=== PATIENT | male | born 1965 | race Caucasian/White ===

== ENCOUNTER 2019-09-28 01:46 | Inpatient (IN) | payer MEDICAID ==
[2019-09-28] VITALS (19 sets, daily range): BP systolic 128–157; BP diastolic 75–100
[~2019-09-28] VITALS: Ht 188 cm; Wt 104.0 kg
[~2019-09-28 01:46] MED LIST: CLIN-90 PO; DIPH25CA83 PO; HYDR20OI TP
[2019-09-28] MEDS ORDERED: naloxone 0.4 mg/ml inj IV ONE (01:55)
[2019-09-28] MEDS ORDERED: naloxone 2mg/2ml inj IV ONE (02:00)
[2019-09-28] MEDS ORDERED: normal saline 1000ML IV soln IVB ONE ×2 (02:00→02:30)
[2019-09-28] MEDS ORDERED: succinylcholine 20mg/ml inj IV ONE (02:30)
[2019-09-28] MEDS ORDERED: etomidate 2mg/ml inj. IV ONE (02:30)
[2019-09-28] MEDS ORDERED: midazolam 100mg in NS 100ml 100 ML IV ONE (02:30)
[2019-09-28 02:37] LABS: CLARITY,URINE CLEAR (Clear); COLOR,URINE YELLOW (Yellow); GLUCOSE, URINE NEGATIVE (Neg); KETONES,URINE NEGATIVE (Neg); LEUKOCYTE ESTERASE ,URINE NEGATIVE (Neg); NITRITES, URINE NEGATIVE (Neg); OCCULT BLOOD,URINE NEGATIVE (Neg); PH,URINE 5.5 (4.8-8.0); PROTEIN,URINE NEGATIVE (Neg)
[2019-09-28 02:38] LABS: UA COLLECTION TYPE FOLEY CATH
[2019-09-28 02:39] LABS: BASOPHILS % (AUTO) 0.7 % (0-1); EOSINOPHILS # (AUTO) 0.1 X10'3 (0-0.9); EOSINOPHILS % (AUTO) 2.7 % (0-6); HEMATOCRIT 41.7 % (42.0-52.0); HEMOGLOBIN 14.1 g/dl (14.0-17.9); LYMPHOCYTES # (AUTO) 1.6 X10'3 (1.1-4.8); LYMPHOCYTES % (AUTO) 37.8 % (21-51); MEAN CORPUSCULAR HEMOGLOBIN 30.6 PG (27.0-31.0); MEAN CORPUSCULAR HGB CONC 33.9 g/dL (33.0-36.5); MEAN CORPUSCULAR VOLUME 90.3 FL (78-98); MEAN PLATELET VOLUME 9.2 FL (7.4-10.4); MONOCYTES # (AUTO) 0.4 X10'3 (0-0.9); MONOCYTES % (AUTO) 8.3 % (2-12); NEUTROPHILS # (AUTO) 2.1 X10'3 (1.8-7.7); NEUTROPHILS % (AUTO) 50.5 % (42-75); PLATELET COUNT 181 X10'3 (140-440); RED BLOOD COUNT 4.62 X10'6 (4.70-6.10); RED CELL DISTRIBUTION WIDTH 13.6 % (11.5-14.5); WHITE BLOOD COUNT 4.2 X10'3 (4.5-11.0)
[2019-09-28 02:52] LABS: ALANINE AMINOTRANSFERASE 64 U/L (12-78); ALBUMIN 3.6 G/DL (3.4-5.0); ALBUMIN/GLOBULIN RATIO 0.9 (1.1-1.5); ALKALINE PHOSPHATASE 89 IU/L (46-116); ANION GAP 6 (8-16); ASPARTATE AMINO TRANSFERASE 51 U/L (10-37); BILIRUBIN,TOTAL 0.8 MG/DL (0.1-1.0); BLOOD UREA NITROGEN 13 MG/DL (7-18); BUN/CREATININE RATIO 13.7 (5.4-32.0); CHLORIDE 108 MMOL/L (99-107); CREATININE 0.95 MG/DL (0.60-1.10); GLUCOSE 103 MG/DL (70-104); POTASSIUM 3.6 MMOL/L (3.5-5.1); SODIUM 141 MMOL/L (135-145); TOTAL CARBON DIOXIDE 26.7 MMOL/L (24-32); TOTAL PROTEIN 7.5 G/DL (6.4-8.2); eGFR 84 ML/MIN
--- NOTE | 2019-09-28 02:54 | NUR ---
Versed bolus of 10mg verbal order by Dr. Freeman due to patient waking with eyes wide open, chewing on his tongue and ET tube and trying to climb off the gurney.
[2019-09-28 02:55] LABS: ACETAMINOPHEN < 2.0 UG/ML (10-30); ETHANOL < 0.010 GM/DL (0.0-0.010)
[2019-09-28 02:57] LABS: PARTIAL THROMBOPLASTIN TIME 27 SECONDS (22-32)
--- NOTE | 2019-09-28 03:08 | NUR ---
PT UPGRADED TO CECELIA LEVEL 2 AFTER DECREASE IN MENTATION AND GCS REQUIRING INTUBATION.
[2019-09-28 03:26] LABS: ABG BASE EXCESS -1.2 mmol/L (-2.0-3.0); ABG HCO3 25.7 mmol/L (22.0-26.0); ABG OXYGEN SATURATION 98.6 % (95-98); ABG PCO2 (T) 51.7 mmHg (35.0-45.0); ABG PH (T) 7.314 (7.350-7.450); ABG PO2 (T) 153.1 mmHg (83-108); ALLEN'S TEST POSITIVE; FCOHb 0.3 % (0.5-1.5); FMetHb 0.3 % (0.3-1.12); PEEP 5 cm H2O; RESPIRATORY RATE 16 b/min; TIDAL VOLUME 450 mL; TOTAL HEMOGLOBIN 13.5 G/dl (14.0-17.9)
[2019-09-28] MEDS ORDERED: magnesium hydroxide 30ml (MOM) UD suspension PO PRN (03:55)
[2019-09-28] MEDS ORDERED: midazolam 100mg in NS 100ml 100 ML IV PRN (03:55)
[2019-09-28] MEDS ORDERED: potassium Cl 20 mEq SR tablet PO PRN ×2 (03:55)
[2019-09-28] MEDS ORDERED: acetaminophen 325mg tablet PO PRN ×2 (03:55)
[2019-09-28] MEDS: K, MAG and/or Phos replacement - Verify level? MC SCH ×2 (03:55→08:00)
[2019-09-28] MEDS ORDERED: potassium CL 10mEq/100ml bag 100 ML IV PRN ×2 (03:55)
[2019-09-28] MEDS ORDERED: ondansetron/PF 4mg/2ml inj IV PRN (03:55)
[2019-09-28 04:01] LABS: URINE AMPHETAMINE SCREEN POSITIVE (Neg); URINE BARBITUATE SCREEN NEGATIVE (Neg); URINE BENZODIAZEPINES SCREEN NEGATIVE (Neg); URINE CANNABINOID SCREEN NEGATIVE (Neg); URINE COCAINE SCREEN NEGATIVE (Neg); URINE METHADONE SCREEN NEGATIVE (Neg); URINE OPIATE SCREEN NEGATIVE (Neg); URINE PHENCYCLIDINE SCREEN NEGATIVE (Neg)
[2019-09-28] MEDS: normal saline 1000ml 1,000 ML IV SCH ×2 (04:34→07:13)
[2019-09-28] MEDS ORDERED: etomidate 2mg/ml inj. ONE (08:00)
[2019-09-28] MEDS ORDERED: naloxone 2mg/2ml inj ONE (08:00)
[2019-09-28] MEDS ORDERED: magnesium sulf 1 GM/2 ML ONE (08:00)
[2019-09-28] MEDS: ipratropium/albuterol 3ml nebule NEB SCH ×6 (08:22→23:26)
[2019-09-28] MEDS: pantoprazole 40 MG vial IV SCH (08:36)
--- NOTE | 2019-09-28 08:40 | NUR ---
Blaze kendall, new orders to cut versed rate in half, which would make new rate 4mg/hr. No other orders at this time.
--- NOTE | 2019-09-28 13:20 | NUR ---
Pt with low [place] of 11. Per physical assessment pt with no edema or wounds. No nutrition intervention warranted at this time. Pt intubated shortly after arrival in the ER due to poor airway control per H&P, however just recently extubated, pending PO diet advancement. Will continue to follow. Addendum: 09/28/19 at [address] Amended: Links added.
[2019-09-28 16:21] LABS: ABG BASE EXCESS -3.7 mmol/L (-2.0-3.0); ABG HCO3 19.4 mmol/L (22.0-26.0); ABG OXYGEN SATURATION 98.2 % (95-98); ABG PCO2 (T) 30.1 mmHg (35.0-45.0); ABG PH (T) 7.428 (7.350-7.450); ABG PO2 (T) 117.3 mmHg (83-108); ALLEN'S TEST POSITIVE; FCOHb 0.3 % (0.5-1.5); FMetHb 0.2 % (0.3-1.12); FO2Hb 97.7 % (94-100); TOTAL HEMOGLOBIN 13.5 G/dl (14.0-17.9)
[2019-09-28] MEDS ORDERED: hydrALAZINE 20mg/ml inj. IV ONE (17:35)
[2019-09-28] MEDS: hydrALAZINE 20mg/ml inj. IV SCH (20:00)
[2019-09-29] VITALS (18 sets, daily range): BP systolic 130–169; BP diastolic 73–108
[2019-09-29] MEDS: hydrALAZINE 20mg/ml inj. IV SCH ×2 (02:00→08:01)
[2019-09-29] MEDS: ipratropium/albuterol 3ml nebule NEB SCH ×7 (03:16→19:04)
[2019-09-29 05:32] LABS: BASOPHILS % (AUTO) 0.4 % (0-1); EOSINOPHILS # (AUTO) 0.1 X10'3 (0-0.9); EOSINOPHILS % (AUTO) 1.8 % (0-6); HEMATOCRIT 40.9 % (42.0-52.0); HEMOGLOBIN 13.8 g/dl (14.0-17.9); LYMPHOCYTES # (AUTO) 1.4 X10'3 (1.1-4.8); LYMPHOCYTES % (AUTO) 32.2 % (21-51); MEAN CORPUSCULAR HEMOGLOBIN 30.7 PG (27.0-31.0); MEAN CORPUSCULAR HGB CONC 33.9 g/dL (33.0-36.5); MEAN CORPUSCULAR VOLUME 90.5 FL (78-98); MEAN PLATELET VOLUME 9.6 FL (7.4-10.4); MONOCYTES # (AUTO) 0.3 X10'3 (0-0.9); MONOCYTES % (AUTO) 7.6 % (2-12); NEUTROPHILS # (AUTO) 2.6 X10'3 (1.8-7.7); PLATELET COUNT 161 X10'3 (140-440); RED BLOOD COUNT 4.51 X10'6 (4.70-6.10); RED CELL DISTRIBUTION WIDTH 13.5 % (11.5-14.5); WHITE BLOOD COUNT 4.4 X10'3 (4.5-11.0)
[2019-09-29 05:51] LABS: ALANINE AMINOTRANSFERASE 57 U/L (12-78); ALBUMIN 3.1 G/DL (3.4-5.0); ALBUMIN/GLOBULIN RATIO 0.8 (1.1-1.5); ALKALINE PHOSPHATASE 87 IU/L (46-116); ANION GAP 6 (8-16); ASPARTATE AMINO TRANSFERASE 49 U/L (10-37); BILIRUBIN,TOTAL 2.1 MG/DL (0.1-1.0); BLOOD UREA NITROGEN 8 MG/DL (7-18); BUN/CREATININE RATIO 9.5 (5.4-32.0); CALCIUM 8.7 MG/DL (8.5-10.1); CHLORIDE 107 MMOL/L (99-107); CREATININE 0.84 MG/DL (0.60-1.10); GLUCOSE 90 MG/DL (70-104); MAGNESIUM 1.8 MG/DL (1.5-2.4); PHOSPHORUS 2.9 MG/DL (2.3-4.5); POTASSIUM 3.5 MMOL/L (3.5-5.1); SODIUM 141 MMOL/L (135-145); TOTAL CARBON DIOXIDE 28.2 MMOL/L (24-32); TOTAL PROTEIN 6.9 G/DL (6.4-8.2); eGFR > 90 ML/MIN
--- NOTE | 2019-09-29 06:30 | NUR ---
Patient in room ICU 2039. I have received report from Gabriella COTTO and had the opportunity to ask questions and assume patient care. pt room is clear of any hazards. VSS and NS running @ 75mL/hr.
[2019-09-29] MEDS: normal saline 1000ml 1,000 ML IV SCH (06:35)
[2019-09-29] MEDS ORDERED: mineral oil/petrolatum ophthal oint EACHEYE SCH (08:00)
[2019-09-29] MEDS: K, MAG and/or Phos replacement - Verify level? MC SCH (08:00)
[2019-09-29] MEDS: pantoprazole 40 MG vial IV SCH (08:01)
[2019-09-29] MEDS ORDERED: HYDR-4383 PO (11:03)
--- NOTE | 2019-09-29 14:59 | NUR ---
attempted to call report to receiving RN; RN unavailable.
--- NOTE | 2019-09-29 15:15 | NUR ---
pt report called to Joy COTTO; all questions answered.
--- NOTE | 2019-09-29 15:39 | NUR ---
pt wheeled to 360A with all belongings and transferred 2 person assist to bed from wheel chair.
--- NOTE | 2019-09-29 15:42 | NUR ---
I was unable to scan my 0700 treatment because the previous therapist had scanned the 7 scheduled treatment, i did give the 7 treatment at 7:53 Addendum: 09/29/19 at 1543 by Anita Cespedes RT Amended: Links added.
[2019-09-29] MEDS ORDERED: hyDRALAzine 10mg tablet PO SCH (16:00)
--- NOTE | 2019-09-29 16:30 | NUR ---
Patient arrived to room 360 A via wheelchair with x1 staff. Received report from YADIEL Jain. Patient alert and in no apparent distress at time of arrival. Patient has a flat affect and answers in very short responses. Patient denies pain at this time. Patient asking for a sandwich and water. Blood pressure elevated at 169/108 and HR of 79. Lorena Pulido notified and an order for Hydralazine was put in.
--- NOTE | 2019-09-29 18:27 | NUR ---
Problems reprioritized. Patient report given, questions answered & plan of care reviewed with YADIEL Simental.
--- NOTE | 2019-09-29 18:30 | NUR ---
Patient in room [facility] 360. I have received report from YADIEL Canseco and had the opportunity to ask questions and assume patient care. Patient is sitting up in bed A&Ox3, PIKE but seems sedate. He reports he has a migraine and would like Imitrex, that med is not ordered and I advised I would consult with .
--- NOTE | 2019-09-29 20:27 | NUR ---
I walked into patient's room to pass night meds and he was getting dressed, told me "I am leaving". He had a friend at the bedside, who said he was the patient's ride. I explained the cons of leaving AMA and it would be in his best interest to say for medical clearance, patient again said he would not wait for MD to come speak with him. PITO Oleary was notified of AMA request and that the patient would not wait for him to come evaluate and talk to him. Patient signed AMA paper work and requested belongings he says were locked up. I left the room to call ER Admit for belongings and when I came back to the room the patient was gone.
[2019-09-30] MEDS ORDERED: pantoprazole 40mg Tablet.DR PO SCH (07:30)
== END 2019-09-29 20:00 | disposition left against medical advice (07) | DRG 812 ==
LOC: ER 01:47 → ED HOLD 04:08 → ICU 2S 05:04 → SUR 3N 09-29 15:23
PROVIDERS: ADMIT Internal Medicine Critical Care Medicine; ATTEND Internal Medicine Critical Care Medicine
PROC: 5A1935Z Respiratory Ventilation, Less than 24 Consecutive Hours (ICD-10-PCS; principal; 2019-09-28)
PROC: 0BH17EZ Insertion of Endotracheal Airway into Trachea, Via Natural or Artificial Opening (ICD-10-PCS; 2019-09-28)
DX: T50.902A Poisoning by unspecified drugs, medicaments and biological substances, intentional self-harm, initial encounter (principal); J96.00 Acute respiratory failure, unspecified whether with hypoxia or hypercapnia; F32.9 Major depressive disorder, single episode, unspecified; F15.90 Other stimulant use, unspecified, uncomplicated; Z85.47 Personal history of malignant neoplasm of testis; Z90.49 Acquired absence of other specified parts of digestive tract; Z53.29 Procedure and treatment not carried out because of patient's decision for other reasons; Z88.5 Allergy status to narcotic agent; I95.9 Hypotension, unspecified; Y92.89 Other specified places as the place of occurrence of the external cause
CPT/HCPCS: 31500; 36415; 36600; 70450; 71045; 80053; 80305; 80320; 80329; 81003; 82803; 82948; 83735; 84100; 85018; 85025; 85610; 85730; 87070; 87081; 93005; 94640; 94760; 96374; 97110; 97116; 97161; 99291; C9113; G0378; J0330; J0360; J2310; J3475; J7030

== ENCOUNTER 2020-10-12 23:21 | Emergency (ER) | payer MEDICAID ==
[~2020-10-12] VITALS: Ht 172.7 cm; Wt 85.0 kg
[~2020-10-12 23:21] MED LIST changes: -CLIN-90 PO; +CLIN-97 PO; +HYDR-4383 PO
[2020-10-12 23:23] VITALS: BP 188/111
== END 2020-10-13 00:01 ==
LOC: ER 23:21
DX: S01.81XA Laceration without foreign body of other part of head, initial encounter (principal); F15.10 Other stimulant abuse, uncomplicated; F32.9 Major depressive disorder, single episode, unspecified; Z56.0 Unemployment, unspecified; Z90.49 Acquired absence of other specified parts of digestive tract; Z85.47 Personal history of malignant neoplasm of testis; X08.8XXA Exposure to other specified smoke, fire and flames, initial encounter; Y93.89 Activity, other specified; Y92.89 Other specified places as the place of occurrence of the external cause; Y99.8 Other external cause status
CPT/HCPCS: 99283

== ENCOUNTER 2021-03-03 15:28 | Emergency (ER) | payer MEDICAID ==
[~2021-03-03] VITALS: Ht 172.7 cm; Wt 90.9 kg
[2021-03-03 15:41] VITALS: BP 140/65
--- NOTE | 2021-03-03 16:25 | NUR ---
PATIENT IN FTA WITH U/S WITH MALE TECH STAND BY
[2021-03-03 16:51] LABS: BASOPHILS % (AUTO) 0.3 % (0-1); EOSINOPHILS % (AUTO) 0.2 % (0-6); HEMATOCRIT 41.4 % (42.0-52.0); HEMOGLOBIN 13.7 g/dl (14.0-17.9); LYMPHOCYTES # (AUTO) 1.3 X10'3 (1.1-4.8); LYMPHOCYTES % (AUTO) 14.5 % (21-51); MEAN CORPUSCULAR HEMOGLOBIN 31.3 PG (27.0-31.0); MEAN CORPUSCULAR HGB CONC 33.1 g/dL (33.0-36.5); MEAN CORPUSCULAR VOLUME 94.6 FL (78-98); MEAN PLATELET VOLUME 9.8 FL (7.4-10.4); MONOCYTES # (AUTO) 0.7 X10'3 (0-0.9); MONOCYTES % (AUTO) 7.6 % (2-12); NEUTROPHILS % (AUTO) 77.4 % (42-75); PLATELET COUNT 188 X10'3 (140-440); RED BLOOD COUNT 4.38 X10'6 (4.70-6.10); RED CELL DISTRIBUTION WIDTH 13.8 % (11.5-14.5); WHITE BLOOD COUNT 9.1 X10'3 (4.5-11.0)
[2021-03-03] MEDS ORDERED: DOXY150T8 PO (16:58)
[2021-03-03 17:13] LABS: ALANINE AMINOTRANSFERASE 72 U/L (12-78); ALBUMIN 3.6 G/DL (3.4-5.0); ALBUMIN/GLOBULIN RATIO 0.9 (1.1-1.5); ALKALINE PHOSPHATASE 79 IU/L (46-116); ANION GAP 10 (8-16); ASPARTATE AMINO TRANSFERASE 55 U/L (10-37); BILIRUBIN,TOTAL 2.4 MG/DL (0.1-1.0); BLOOD UREA NITROGEN 11 MG/DL (7-18); BUN/CREATININE RATIO 10.6 (5.4-32.0); CALCIUM 8.6 MG/DL (8.5-10.1); CHLORIDE 104 MMOL/L (99-107); CREATININE 1.04 MG/DL (0.60-1.10); GLUCOSE 103 MG/DL (70-104); POTASSIUM 3.8 MMOL/L (3.5-5.1); SODIUM 137 MMOL/L (135-145); TOTAL CARBON DIOXIDE 23.5 MMOL/L (24-32); TOTAL PROTEIN 7.8 G/DL (6.4-8.2); eGFR 75 ML/MIN
== END 2021-03-03 17:19 | disposition home or self-care (01) ==
LOC: ER 15:29
DX: N45.1 Epididymitis (principal); N50.811 Right testicular pain; K46.9 Unspecified abdominal hernia without obstruction or gangrene; F32.9 Major depressive disorder, single episode, unspecified; F15.90 Other stimulant use, unspecified, uncomplicated; Z85.47 Personal history of malignant neoplasm of testis; Z90.49 Acquired absence of other specified parts of digestive tract; Z56.0 Unemployment, unspecified; Z88.5 Allergy status to narcotic agent; Z79.2 Long term (current) use of antibiotics; Z79.899 Other long term (current) drug therapy
CPT/HCPCS: 36415; 76870; 80053; 85025; 93976; 99284

== ENCOUNTER 2021-03-06 21:14 | Emergency (ER) | payer MEDICAID ==
[~2021-03-06] VITALS: Ht 172.7 cm; Wt 95.5 kg
[~2021-03-06 21:14] MED LIST changes: +DOXY150T8 PO
[2021-03-06 21:22] VITALS: BP 141/92
[2021-03-06] MEDS ORDERED: levoFLOXACIN 250mg tablet PO ONE (22:20)
[2021-03-06] MEDS ORDERED: HYDROcodone/acetaminophen 10/325mg tab PO ONE (22:20)
[2021-03-06] MEDS ORDERED: ketorolac trometh. 30mg/ml inj. IM ONE (22:20)
[2021-03-06] MEDS ORDERED: LEVO500T89 PO (22:36)
[2021-03-06] MEDS ORDERED: HYDR-3972 PO (22:37)
[2021-03-06 22:56] LABS: CLARITY,URINE CLEAR (Clear); COLOR,URINE AMBER (Yellow); GLUCOSE, URINE NEGATIVE (Neg); KETONES,URINE NEGATIVE (Neg); LEUKOCYTE ESTERASE ,URINE NEGATIVE (Neg); NITRITES, URINE NEGATIVE (Neg); OCCULT BLOOD,URINE NEGATIVE (Neg); PH,URINE 5.5 (4.8-8.0); PROTEIN,URINE NEGATIVE (Neg)
[2021-03-06 23:02] LABS: UA COLLECTION TYPE CLN CATCH MIDSTREAM
== END 2021-03-06 22:46 | disposition home or self-care (01) ==
LOC: ER 21:15
DX: N45.1 Epididymitis (principal); F32.9 Major depressive disorder, single episode, unspecified; F15.10 Other stimulant abuse, uncomplicated; Z56.0 Unemployment, unspecified
CPT/HCPCS: 81003; 96372; 99283; J1885

== ENCOUNTER 2021-03-12 05:59 | Emergency (ER) | payer MEDICAID ==
[~2021-03-12] VITALS: Ht 172.7 cm; Wt 93.2 kg
[~2021-03-12 05:59] MED LIST changes: +HYDR-3972 PO; +LEVO500T89 PO
[2021-03-12] MEDS ORDERED: HYDROcodone/acetaminophen 5mg/325mg tablet PO STA (06:08)
[2021-03-12 07:31] VITALS: BP 140/89
[2021-03-12] MEDS ORDERED: LEVO500T89 PO (08:05)
== END 2021-03-12 08:29 | disposition home or self-care (01) ==
LOC: ER 06:01
DX: N45.1 Epididymitis (principal); N50.811 Right testicular pain; F32.9 Major depressive disorder, single episode, unspecified; F17.200 Nicotine dependence, unspecified, uncomplicated; F15.90 Other stimulant use, unspecified, uncomplicated; Z86.19 Personal history of other infectious and parasitic diseases; Z85.9 Personal history of malignant neoplasm, unspecified; Z90.49 Acquired absence of other specified parts of digestive tract; Z56.0 Unemployment, unspecified; Z88.5 Allergy status to narcotic agent; Z79.2 Long term (current) use of antibiotics; Z79.899 Other long term (current) drug therapy
CPT/HCPCS: 99283

== ENCOUNTER 2021-04-22 05:44 | Emergency (ER) | payer MEDICAID ==
[~2021-04-22] VITALS: Ht 172.7 cm; Wt 100.5 kg
[~2021-04-22 05:44] MED LIST changes: -DOXY150T8 PO; -HYDR-3972 PO; -LEVO500T89 PO
[2021-04-22] MEDS ORDERED: AMOX-422 PO (06:43)
[2021-04-22] MEDS ORDERED: HYDR-3965 PO (06:44)
[2021-04-22 06:56] VITALS: BP_DIAS 116
[2021-04-22] MEDS ORDERED: lisinopril 10 MG tablet PO ONE (07:10)
[2021-04-22 07:11] VITALS: BP_SYST 188
--- NOTE | 2021-04-22 07:36 | NUR ---
Patient seen and assessed by provider.
== END 2021-04-22 07:37 | disposition home or self-care (01) ==
LOC: ER 05:45
DX: K08.89 Other specified disorders of teeth and supporting structures (principal); R11.0 Nausea; F32.9 Major depressive disorder, single episode, unspecified; F17.200 Nicotine dependence, unspecified, uncomplicated; F15.90 Other stimulant use, unspecified, uncomplicated; Z86.19 Personal history of other infectious and parasitic diseases; Z85.47 Personal history of malignant neoplasm of testis; Z90.49 Acquired absence of other specified parts of digestive tract; Z56.0 Unemployment, unspecified; Z88.5 Allergy status to narcotic agent; Z79.2 Long term (current) use of antibiotics; Z79.899 Other long term (current) drug therapy
CPT/HCPCS: 99283